=== PATIENT | female | born 1945 | race African-American/Black ===

== ENCOUNTER 2021-01-04 09:40 | Emergency (ER) | payer MEDICARE, BC ==
[~2021-01-04] VITALS: Ht 167.6 cm; Wt 66.0 kg
[~2021-01-04 09:40] MED LIST: ALPR0.25 PO; ZOLP5TAB2 PO
[2021-01-04] MEDS ORDERED: ACETAMINOPHEN WITH CODEINE 300/30MG TABLET PO ONE (10:30)
[2021-01-04] MEDS ORDERED: TOPUD PO (12:27)
[2021-01-04 12:33] VITALS: BP 155/66
== END 2021-01-04 12:39 | disposition home or self-care (01) ==
LOC: ER 09:40
DX: M54.9 Dorsalgia, unspecified (principal); R07.9 Chest pain, unspecified; D46.9 Myelodysplastic syndrome, unspecified; W01.0XXA Fall on same level from slipping, tripping and stumbling without subsequent striking against object, initial encounter; Y93.F1 Activity, caregiving, bathing; Y92.9 Unspecified place or not applicable; Z88.0 Allergy status to penicillin; Z85.6 Personal history of leukemia; Z88.6 Allergy status to analgesic agent; Z90.710 Acquired absence of both cervix and uterus; Z98.890 Other specified postprocedural states
CPT/HCPCS: 71111; 99283

== ENCOUNTER 2021-04-14 18:24 | Inpatient (IN) | payer MEDICARE, BC ==
[~2021-04-14] VITALS: Ht 170.2 cm; Wt 65.9 kg
[~2021-04-14 18:24] MED LIST changes: +TOPUD PO
[2021-04-14 18:25] VITALS: BP 129/70
[2021-04-14 19:30] VITALS: BP 129/70
[2021-04-14] MEDS ORDERED: HYDRALAZINE 20MG/ML VIAL IV PRN (19:30)
[2021-04-14] MEDS ORDERED: GUAIFENESIN 200MG/10ML SUGAR FREE UDC PO PRN (19:30)
[2021-04-14] MEDS ORDERED: DIPHENHYDRAMINE 50MG/ML VIAL IV PRN (19:30)
[2021-04-14] MEDS ORDERED: LORAZEPAM 0.5MG TABLET PO PRN (19:30)
[2021-04-14] MEDS ORDERED: MAGNESIUM/ALUMINUM HYDROXIDE/SIMETHICONE 30ML UDC PO PRN (19:30)
[2021-04-14] MEDS ORDERED: ALPRAZOLAM 0.5 MG TABLET PO PRN (19:30)
[2021-04-14] MEDS ORDERED: CLONIDINE 0.1MG TABLET PO PRN (19:30)
[2021-04-14] MEDS ORDERED: NA PHOS,M-B/NA PHOS,DI-BA ENEMA 118ML PR PRN (19:30)
[2021-04-14] MEDS ORDERED: NALOXONE HCL 0.4 MG/ML 1ML VIAL IV PRN (19:30)
[2021-04-14] MEDS ORDERED: HYDROCODONE/ACETAMINOPHEN 10/325MG TABLET PO PRN (19:30)
[2021-04-14] MEDS ORDERED: MORPHINE SULFATE 2 MG/ML CPJ (NOT FOR IM USE) IV PRN (19:30)
[2021-04-14] MEDS ORDERED: HYDRALAZINE 10 MG in SODIUM CHLORIDE 0.9% 49.5 ML IV PRN (20:00)
[2021-04-15] MEDS: ZOLPIDEM TARTRATE 5MG TABLET PO PRN ×2 (02:24→21:45)
[2021-04-15 08:00] VITALS: BP 107/69
[2021-04-15] MEDS: HYDROCHLOROTHIAZIDE 25MG TABLET PO SCH (09:00)
[2021-04-15] MEDS: CYCLOSPORINE, MODIFIED 100MG CAPSULE PO SCH ×2 (09:00→17:00)
[2021-04-15] MEDS: AMLODIPINE 10MG TABLET PO SCH (09:00)
[2021-04-15] MEDS ORDERED: INFLUENZA VACCINE 05/PF 0.5 ML SYRINGE IM ONE (09:00)
[2021-04-15] MEDS: CYCLOSPORINE, MODIFIED 25MG CAPSULE PO SCH ×2 (09:59→17:43)
[2021-04-15] MEDS: DOCUSATE SODIUM 100MG CAPSULE PO SCH ×2 (09:59→17:43)
[2021-04-15 20:00] VITALS: BP 150/92
[2021-04-16] MEDS: ACETAMINOPHEN 325MG TABLET PO PRN (05:37)
[2021-04-16] MEDS: BISACODYL 5MG TABLET PO PRN (05:38)
[2021-04-16 08:00] VITALS: BP 159/89
[2021-04-16] MEDS: CYCLOSPORINE, MODIFIED 25MG CAPSULE PO SCH ×2 (09:04→16:30)
[2021-04-16] MEDS: DOCUSATE SODIUM 100MG CAPSULE PO SCH ×2 (09:04→16:30)
[2021-04-16] MEDS: AMLODIPINE 10MG TABLET PO SCH (09:05)
[2021-04-16] MEDS: HYDROCHLOROTHIAZIDE 25MG TABLET PO SCH (09:05)
[2021-04-16] MEDS: CYCLOSPORINE, MODIFIED 100MG CAPSULE PO SCH (09:19)
[2021-04-16] MEDS: RISPERIDONE 1MG TABLET PO SCH (11:48)
[2021-04-16 11:49] VITALS: BP 151/80
[2021-04-16] MEDS: LACTULOSE 20G/30ML UDC PO SCH ×2 (16:30→21:23)
[2021-04-16 20:00] VITALS: BP 134/77
[2021-04-17] MEDS: LACTULOSE 20G/30ML UDC PO SCH ×2 (04:00)
[2021-04-17 07:35] LABS: BASOPHILS % 0.1 % (0.0-2.0); EOSINOPHILS % 0.1 % (0.0-5.0); HEMATOCRIT. 29.3 % (36.0-48.0); HEMOGLOBIN. 10.1 g/dL (12.0-16.0); LYMPHOCYTES % 11.8 % (20.0-50.0); MEAN CORPUSCULAR HEMOGLOBIN 37.8 pg (28.0-32.0); MEAN CORPUSCULAR VOLUME 109.8 fL (81.0-99.0); MEAN PLATELET VOLUME 7.9 fl (7.4-10.4); MONOCYTES % 8.2 % (2.0-8.0); NEUTROPHILS % 79.8 % (40.0-76.0); PLATELET 340 x1000/uL (130-400); RED BLOOD CELL COUNT 2.67 mill/uL (4.2-5.4)
[2021-04-17 07:43] VITALS: BP 138/81
[2021-04-17] MEDS: DOCUSATE SODIUM 100MG CAPSULE PO SCH ×2 (08:51→16:46)
[2021-04-17] MEDS: CYCLOSPORINE, MODIFIED 25MG CAPSULE PO SCH ×2 (08:51→16:46)
[2021-04-17] MEDS: RISPERIDONE 1MG TABLET PO SCH (08:51)
[2021-04-17] MEDS: HYDROCHLOROTHIAZIDE 25MG TABLET PO SCH (08:51)
[2021-04-17] MEDS: AMLODIPINE 10MG TABLET PO SCH (08:51)
[2021-04-17 13:07] LABS: CHLORIDE 106 mEq/L (98-107)
[2021-04-17 20:00] VITALS: BP 130/78
[2021-04-18 08:00] VITALS: BP 147/90
[2021-04-18] MEDS: HYDROCHLOROTHIAZIDE 25MG TABLET PO SCH (08:40)
[2021-04-18] MEDS: RISPERIDONE 1MG TABLET PO SCH (08:40)
[2021-04-18] MEDS: CYCLOSPORINE, MODIFIED 25MG CAPSULE PO SCH ×2 (08:40→17:05)
[2021-04-18] MEDS: DOCUSATE SODIUM 100MG CAPSULE PO SCH ×2 (08:40→17:04)
[2021-04-18] MEDS: AMLODIPINE 10MG TABLET PO SCH (08:42)
[2021-04-18 20:00] VITALS: BP 129/67
[2021-04-19 08:00] VITALS: BP 142/87
[2021-04-19] MEDS: CYCLOSPORINE, MODIFIED 25MG CAPSULE PO SCH ×2 (08:39→17:37)
[2021-04-19] MEDS: RISPERIDONE 1MG TABLET PO SCH (08:40)
[2021-04-19] MEDS: HYDROCHLOROTHIAZIDE 25MG TABLET PO SCH (08:40)
[2021-04-19] MEDS: AMLODIPINE 10MG TABLET PO SCH (08:40)
[2021-04-19] MEDS: DOCUSATE SODIUM 100MG CAPSULE PO SCH ×2 (08:40→17:37)
[2021-04-19] MEDS ORDERED: HYDRALAZINE HCL 10MG TABLET PO PRN (09:45)
[2021-04-19] MEDS ORDERED: DIPHENHYDRAMINE 25MG CAPSULE PO PRN (09:45)
[2021-04-19 20:00] VITALS: BP 132/68
[2021-04-19] MEDS: MEMANTINE HCL 5MG TABLET PO SCH (21:02)
[2021-04-20 08:00] VITALS: BP 113/70
[2021-04-20] MEDS: RISPERIDONE 1MG TABLET PO SCH (08:31)
[2021-04-20] MEDS: HYDROCHLOROTHIAZIDE 25MG TABLET PO SCH (08:31)
[2021-04-20] MEDS: DOCUSATE SODIUM 100MG CAPSULE PO SCH ×2 (08:31→17:52)
[2021-04-20] MEDS: AMLODIPINE 10MG TABLET PO SCH (08:31)
[2021-04-20] MEDS: CYCLOSPORINE, MODIFIED 25MG CAPSULE PO SCH ×2 (08:31→17:52)
[2021-04-20] MEDS: MEMANTINE HCL 5MG TABLET PO SCH ×2 (09:24→20:58)
[2021-04-20 20:00] VITALS: BP 128/77
[2021-04-20] MEDS ORDERED: BENZTROPINE MESYLATE 1MG TABLET PO SCH (21:00)
[2021-04-21 08:00] VITALS: BP 113/72
[2021-04-21] MEDS: BISACODYL 5MG TABLET PO PRN (08:40)
[2021-04-21] MEDS: DOCUSATE SODIUM 100MG CAPSULE PO SCH ×2 (08:40→17:51)
[2021-04-21] MEDS: RISPERIDONE 1MG TABLET PO SCH (08:40)
[2021-04-21] MEDS: AMLODIPINE 10MG TABLET PO SCH (08:41)
[2021-04-21] MEDS: HYDROCHLOROTHIAZIDE 25MG TABLET PO SCH (08:41)
[2021-04-21] MEDS: MEMANTINE HCL 5MG TABLET PO SCH ×2 (08:41→20:04)
[2021-04-21] MEDS: CYCLOSPORINE, MODIFIED 25MG CAPSULE PO SCH ×2 (08:41→17:51)
[2021-04-21 20:00] VITALS: BP 125/66
[2021-04-21] MEDS: BENZTROPINE MESYLATE 0.5MG TABLET PO SCH (20:04)
[2021-04-22 08:00] VITALS: BP 115/71
[2021-04-22] MEDS ORDERED: RISPERIDONE 0.5MG TABLET PO SCH (09:00)
[2021-04-22] MEDS: HYDROCHLOROTHIAZIDE 25MG TABLET PO SCH (09:00)
[2021-04-22] MEDS: AMLODIPINE 10MG TABLET PO SCH (10:00)
[2021-04-22] MEDS: MEMANTINE HCL 5MG TABLET PO SCH ×2 (10:00→20:01)
[2021-04-22] MEDS: CYCLOSPORINE, MODIFIED 25MG CAPSULE PO SCH ×2 (10:01→17:37)
[2021-04-22] MEDS: DOCUSATE SODIUM 100MG CAPSULE PO SCH ×2 (10:01→17:36)
[2021-04-22] MEDS: RISPERIDONE 0.5MG TABLET PO SCH (17:36)
[2021-04-22 20:00] VITALS: BP 117/66
[2021-04-22] MEDS: BENZTROPINE MESYLATE 0.5MG TABLET PO SCH (20:01)
[2021-04-23] MEDS: BISACODYL 5MG TABLET PO PRN (05:42)
[2021-04-23 08:00] VITALS: BP 124/71
[2021-04-23] MEDS: HYDROCHLOROTHIAZIDE 25MG TABLET PO SCH (10:26)
[2021-04-23] MEDS: CYCLOSPORINE, MODIFIED 25MG CAPSULE PO SCH ×2 (10:26→17:48)
[2021-04-23] MEDS: RISPERIDONE 0.5MG TABLET PO SCH ×2 (10:27→17:48)
[2021-04-23] MEDS: AMLODIPINE 10MG TABLET PO SCH (10:27)
[2021-04-23] MEDS: DOCUSATE SODIUM 100MG CAPSULE PO SCH ×2 (10:27→17:48)
[2021-04-23] MEDS: MEMANTINE HCL 5MG TABLET PO SCH ×2 (10:27→20:56)
[2021-04-23 20:00] VITALS: BP 119/84
[2021-04-23] MEDS: BENZTROPINE MESYLATE 0.5MG TABLET PO SCH (20:56)
[2021-04-24 07:58] VITALS: BP 137/81
[2021-04-24] MEDS: MEMANTINE HCL 5MG TABLET PO SCH ×2 (08:14→21:53)
[2021-04-24] MEDS: AMLODIPINE 10MG TABLET PO SCH (08:14)
[2021-04-24] MEDS: RISPERIDONE 0.5MG TABLET PO SCH ×2 (08:14→16:21)
[2021-04-24] MEDS: HYDROCHLOROTHIAZIDE 25MG TABLET PO SCH (08:14)
[2021-04-24] MEDS: DOCUSATE SODIUM 100MG CAPSULE PO SCH ×2 (08:14→16:21)
[2021-04-24] MEDS: CYCLOSPORINE, MODIFIED 25MG CAPSULE PO SCH ×2 (10:42→16:21)
[2021-04-24] MEDS: ACETAMINOPHEN 325MG TABLET PO PRN (13:30)
[2021-04-24 20:00] VITALS: BP 123/81
[2021-04-24] MEDS: BENZTROPINE MESYLATE 0.5MG TABLET PO SCH (21:53)
[2021-04-25 08:00] VITALS: BP 141/82
[2021-04-25] MEDS: CYCLOSPORINE, MODIFIED 25MG CAPSULE PO SCH (08:53)
[2021-04-25] MEDS: DOCUSATE SODIUM 100MG CAPSULE PO SCH (08:53)
[2021-04-25] MEDS: HYDROCHLOROTHIAZIDE 25MG TABLET PO SCH (08:55)
[2021-04-25] MEDS: AMLODIPINE 10MG TABLET PO SCH (08:55)
[2021-04-25] MEDS: MEMANTINE HCL 5MG TABLET PO SCH (08:55)
[2021-04-25] MEDS: RISPERIDONE 0.5MG TABLET PO SCH (08:55)
[2021-04-25 14:28] VITALS: BP 131/82
== END 2021-04-25 15:10 | DRG 552 ==
PROVIDERS: ADMIT Psychiatry & Neurology Neurology; ATTEND Internal Medicine
PROC: 4A10X4Z Monitoring of Central Nervous Electrical Activity, External Approach (ICD-10-PCS; principal; 2021-04-19)
DX: S32.010A Wedge compression fracture of first lumbar vertebra, initial encounter for closed fracture (principal); G93.40 Encephalopathy, unspecified; I67.82 Cerebral ischemia; R65.10 Systemic inflammatory response syndrome (SIRS) of non-infectious origin without acute organ dysfunction; D46.9 Myelodysplastic syndrome, unspecified; F41.1 Generalized anxiety disorder; I10 Essential (primary) hypertension; K59.09 Other constipation; M47.819 Spondylosis without myelopathy or radiculopathy, site unspecified; M48.061 Spinal stenosis, lumbar region without neurogenic claudication; M51.27 Other intervertebral disc displacement, lumbosacral region; W18.30XA Fall on same level, unspecified, initial encounter; F03.90 Unspecified dementia, unspecified severity, without behavioral disturbance, psychotic disturbance, mood disturbance, and anxiety; Z20.822 Contact with and (suspected) exposure to COVID-19; F39 Unspecified mood [affective] disorder; M85.80 Other specified disorders of bone density and structure, unspecified site; F32.A Depression, unspecified; Y93.89 Activity, other specified; Y92.009 Unspecified place in unspecified non-institutional (private) residence as the place of occurrence of the external cause; Z90.710 Acquired absence of both cervix and uterus; Y99.8 Other external cause status
CPT/HCPCS: 36415; 80048; 83615; 85025; 87426; 90686; 92523; 93970; 95816; 97110; 97112; 97116; 97162; 97166; 97530; 97535; J7502; J7515

== ENCOUNTER 2022-04-14 21:36 | Inpatient (IN) | payer MEDICARE, BC ==
[~2022-04-14] VITALS: Ht 167.6 cm; Wt 50.9 kg
[2022-04-14] MEDS ORDERED: ASPIRIN 81MG TABLET PO ONE (22:45)
[2022-04-15] MEDS ORDERED: ASPIRIN 81MG TABLET PO NR (03:00)
[2022-04-15 03:21] LABS: BASOPHILS % 1.3 % (0.0-2.0); EOSINOPHILS % 0.2 % (0.0-5.0); LYMPHOCYTES % 19.4 % (20.0-50.0); MEAN CORPUSCULAR HEMOGLOBIN 42.4 pg (28.0-32.0); MEAN CORPUSCULAR VOLUME 131.1 fL (81.0-99.0); MEAN PLATELET VOLUME 8.3 fl (7.4-10.4); MONOCYTES % 7.9 % (2.0-8.0); NEUTROPHILS % 71.2 % (40.0-76.0); PLATELET 418 x1000/uL (130-400); RED BLOOD CELL COUNT 1.44 mill/uL (4.2-5.4); RED CELL DISTRIBUTION WIDTH 17.4 % (11.6-14.6)
[2022-04-15 03:24] LABS: HEMATOCRIT. 18.9 % (36.0-48.0); HEMOGLOBIN. 6.1 g/dL (12.0-16.0)
[2022-04-15 03:27] LABS: CHLORIDE 112 mEq/L (98-107)
[2022-04-15 04:47] LABS: PLATELET ESTIMATE SLIGHTLY INCREASED
[2022-04-15 09:30] VITALS: BP 153/67
[2022-04-15 10:00] VITALS: BP 153/67
[2022-04-15] MEDS ORDERED: ONDANSETRON HCL 4MG/2ML INJ IV PRN (11:30)
[2022-04-15] MEDS ORDERED: CLONIDINE 0.1MG TABLET PO PRN (11:30)
[2022-04-15] MEDS ORDERED: HYDROCODONE/ACETAMINOPHEN 5/325MG TABLET PO PRN (11:30)
[2022-04-15] MEDS ORDERED: ACETAMINOPHEN 325MG TABLET PO PRN ×2 (11:30)
[2022-04-15] MEDS ORDERED: IPRATROPIUM/ALBUTEROL 0.5-3(2.5)MG/3ML NEB HHN PRN (11:30)
[2022-04-15] MEDS ORDERED: LORAZEPAM 0.5MG TABLET PO PRN (11:30)
[2022-04-15] MEDS ORDERED: LIDOCAINE HCL 4% CREAM 76GM TUBE TP PRN (11:30)
[2022-04-15] MEDS ORDERED: NALOXONE HCL 0.4MG/ML VIAL IV PRN (11:45)
[2022-04-15 12:00] VITALS: BP 146/73
[2022-04-15 14:27] LABS: TOTAL IRON BINDING CAPACITY 231 ug/dL (250-450)
[2022-04-15] MEDS ORDERED: ZOLPIDEM TARTRATE 5MG TABLET PO PRN (14:45)
[2022-04-15 15:16] LABS: FERRITIN 2708 ng/mL (10-291)
[2022-04-15 16:00] VITALS: BP 150/77
[2022-04-15 16:20] LABS: HEMATOCRIT 25.4 % (36.0-48.0); HEMOGLOBIN 8.7 g/dL (12.0-16.0); MEAN CORPUSCULAR HEMOGLOBIN 39.1 pg (28.0-32.0); MEAN CORPUSCULAR VOLUME 113.4 fL (81.0-99.0); PLATELET 384 x1000/uL (130-400); RED BLOOD CELL COUNT 2.24 mill/uL (4.2-5.4)
[2022-04-15 18:22] LABS: PROTHROMBIN TIME 11.2 sec (9.6-11.0)
[2022-04-15 20:00] VITALS: BP 165/80
[2022-04-16 00:27] VITALS: BP 147/75
[2022-04-16 04:00] VITALS: BP 145/82
[2022-04-16 06:53] LABS: BASOPHILS % 0.5 % (0.0-2.0); EOSINOPHILS % 0.3 % (0.0-5.0); HEMATOCRIT. 26.5 % (36.0-48.0); LYMPHOCYTES % 17.6 % (20.0-50.0); MEAN CORPUSCULAR HEMOGLOBIN 38.9 pg (28.0-32.0); MEAN CORPUSCULAR VOLUME 114.4 fL (81.0-99.0); MEAN PLATELET VOLUME 7.7 fl (7.4-10.4); MONOCYTES % 7.7 % (2.0-8.0); NEUTROPHILS % 73.9 % (40.0-76.0); PLATELET 386 x1000/uL (130-400); RED BLOOD CELL COUNT 2.32 mill/uL (4.2-5.4); RED CELL DISTRIBUTION WIDTH 31.8 % (11.6-14.6)
[2022-04-16 08:00] VITALS: BP 148/85
[2022-04-16 12:00] VITALS: BP 138/79
[2022-04-16] MEDS ORDERED: LIDO5CRE18 TP (13:09)
[2022-04-16 14:20] LABS: BG BASE EXCESS -3.7 mmol/L (-2.0-2.0); BG CARBOXYHEMOGLOBIN 0.3 % (0.5-1.5); BG DEOXYHEMOGLOBIN 3.4 % (0.0-5.0); BG FRACTION INSPIRED OXYGEN 21; BG HCO3 ACT 19.8 mmol/L (22.0-26.0); BG METHEMOGLOBIN 0.3 % (0.0-1.5); BG OXYGEN SATURATION 96.6 % (92.0-98.5); BG PCO2 30.6 mmHg (35.0-45.0); BG PH 7.429 (7.350-7.450); BG PO2 90.3 mmHg (75.0-100.0); BG SAMPLE SITE LEFT BRACHIAL; BG VENT MODE ROOM AIR
[2022-04-16 16:00] VITALS: BP 134/75
[2022-04-16 20:00] VITALS: BP 141/82
[2022-04-16 23:41] LABS: VITAMIN B12 SERUM 1963 pg/mL (211-911)
[2022-04-17] VITALS: BP 130/81
[2022-04-17 04:00] VITALS: BP 127/83
[2022-04-17 08:00] VITALS: BP 137/86
[2022-04-17 12:00] VITALS: BP 142/76
[2022-04-17 16:00] VITALS: BP 121/83
[2022-04-17 20:00] VITALS: BP 121/78
[2022-04-17] MEDS: DOCUSATE SODIUM 100MG CAPSULE PO PRN (21:50)
[2022-04-18] VITALS: BP 135/86
[2022-04-18 04:00] VITALS: BP 146/83
[2022-04-18 06:52] LABS: BASOPHILS % 0.3 % (0.0-2.0); HEMATOCRIT. 24.8 % (36.0-48.0); HEMOGLOBIN. 8.4 g/dL (12.0-16.0); LYMPHOCYTES % 15.9 % (20.0-50.0); MEAN CORPUSCULAR HEMOGLOBIN 39.2 pg (28.0-32.0); MEAN CORPUSCULAR VOLUME 115.7 fL (81.0-99.0); NEUTROPHILS % 71.8 % (40.0-76.0); PLATELET 353 x1000/uL (130-400); RED BLOOD CELL COUNT 2.14 mill/uL (4.2-5.4); RED CELL DISTRIBUTION WIDTH 30.4 % (11.6-14.6)
[2022-04-18 08:00] VITALS: BP 132/84
[2022-04-18] MEDS: DOCUSATE SODIUM 100MG CAPSULE PO PRN ×2 (08:52→18:54)
[2022-04-18] MEDS ORDERED: LACTULOSE 20G/30ML UDC PO NR (11:45)
[2022-04-18] MEDS ORDERED: SODIUM CHLORIDE 0.9% 500 ML IV NR (11:45)
[2022-04-18 12:00] VITALS: BP 157/87
[2022-04-18 16:00] VITALS: BP 110/67
[2022-04-18] MEDS: SODIUM CHLORIDE 0.9% 1,000 ML IV SCH (18:54)
[2022-04-18 20:00] VITALS: BP 139/72
[2022-04-19] VITALS: BP 136/81
[2022-04-19 04:00] VITALS: BP 148/86
[2022-04-19 07:27] LABS: BASOPHILS % 0.4 % (0.0-2.0); EOSINOPHILS % 0.6 % (0.0-5.0); LYMPHOCYTES % 16.8 % (20.0-50.0); MEAN CORPUSCULAR HEMOGLOBIN 39.8 pg (28.0-32.0); MEAN CORPUSCULAR VOLUME 119.2 fL (81.0-99.0); MEAN PLATELET VOLUME 8.1 fl (7.4-10.4); MONOCYTES % 10.5 % (2.0-8.0); NEUTROPHILS % 71.7 % (40.0-76.0); PLATELET 320 x1000/uL (130-400); RED BLOOD CELL COUNT 2.26 mill/uL (4.2-5.4); RED CELL DISTRIBUTION WIDTH 30.4 % (11.6-14.6)
[2022-04-19] MEDS: SODIUM CHLORIDE 0.9% 1,000 ML IV SCH (13:45)
== END 2022-04-19 17:50 | disposition home health service (06) | DRG 811 ==
LOC: ER 21:36 → EDBEDREQTM 04-15 04:18 → EDBEDREQ 04-15 04:18 → 7WST 04-15 09:44
PROVIDERS: ADMIT Internal Medicine; ATTEND Internal Medicine
PROC: 30233N1 Transfusion of Nonautologous Red Blood Cells into Peripheral Vein, Percutaneous Approach (ICD-10-PCS; principal; 2022-04-15)
DX: D46.9 Myelodysplastic syndrome, unspecified (principal); N17.0 Acute kidney failure with tubular necrosis; G93.40 Encephalopathy, unspecified; D63.1 Anemia in chronic kidney disease; I12.9 Hypertensive chronic kidney disease with stage 1 through stage 4 chronic kidney disease, or unspecified chronic kidney disease; E11.22 Type 2 diabetes mellitus with diabetic chronic kidney disease; N18.9 Chronic kidney disease, unspecified; M48.56XG Collapsed vertebra, not elsewhere classified, lumbar region, subsequent encounter for fracture with delayed healing; R79.89 Other specified abnormal findings of blood chemistry; R29.6 Repeated falls; R53.81 Other malaise; R53.83 Other fatigue; F03.90 Unspecified dementia, unspecified severity, without behavioral disturbance, psychotic disturbance, mood disturbance, and anxiety; F51.04 Psychophysiologic insomnia; F41.9 Anxiety disorder, unspecified; F32.A Depression, unspecified; Z88.0 Allergy status to penicillin; Z88.8 Allergy status to other drugs, medicaments and biological substances; Z79.899 Other long term (current) drug therapy; Z86.73 Personal history of transient ischemic attack (TIA), and cerebral infarction without residual deficits; Z90.710 Acquired absence of both cervix and uterus; M94.0 Chondrocostal junction syndrome [Tietze]
CPT/HCPCS: 36415; 36600; 71045; 76770; 80048; 80053; 82270; 82375; 82607; 82728; 82746; 82805; 83540; 83550; 83880; 84484; 85025; 85027; 86850; 86900; 86920; 93005; 93306; 99285; A6261; J7030; P9016